=== PATIENT | female | born 1950 | race Caucasian/White ===

== ENCOUNTER → 2017-06-10 | Outpatient (CLI) | payer BC ==
[~2017-06-10] MED LIST: DIPH-437 PO; LEVO25TA PO; MELO15TA3 PO; MULT-506 PO; OXYC-609 PO; TRAM-10 PO; XRL10 PO; [UNRECOGNIZED DRUG - OTHER] PO; [UNRECOGNIZED DRUG - OTHER] PO
--- NOTE | 2017-06-10 09:42 | DIAGNOSTIC IMAGING REPORT ---
L HIP UNILATERAL 2 VIEWS CLINICAL HISTORY: 66 years-old Female presenting with ACUTE PAIN OF LEFT HIP. TECHNIQUE: Frontal and frog-leg lateral views of the left hip were obtained. COMPARISON: Pelvic radiograph from 07/19/2013. FINDINGS: Left hip joint congruent. No advanced degenerative change. No acute fracture or malalignment. Visualized portion of the bony pelvis intact. IMPRESSION: No acute osseous injury of the left hip. Electronically signed by: Rick Card M.D. 06/10/2017 9:41 AM Dictated Date/Time: 06/10/2017 9:40 AM
== END | disposition home or self-care (01) ==
LOC: C.RAD1850 09:30
PROVIDERS: ATTEND Nurse Practitioner Family
DX: M25.552 Pain in left hip (principal); M13.879 Other specified arthritis, unspecified ankle and foot

== ENCOUNTER → 2017-07-01 | Outpatient (CLI) | payer BC | END | disposition home or self-care (01) | LOC: C.MAMM 07:50 | PROVIDERS: ATTEND Nurse Practitioner Family | DX: M85.88 Other specified disorders of bone density and structure, other site (principal) ==

== ENCOUNTER 2019-02-01 10:30 | Inpatient (IN) ==
--- NOTE | 2019-01-02 16:26 | PAT Medication Instructions ---
Medication Instructions Date of Service January 02, 2019 Home Medications levothyroxine 25 mcg PO QAM meloxicam 15 mg PO QAM mirabegron [Myrbetriq] 50 mg PO QAM multivitamin 1 tab PO QAM oxycodone 5 mg PO DAILY PRN tramadol 50 mg PO DAILY PRN ASK your surgeon for instructions meloxicam 15 mg PO QAM DO NOT take the morning of surgery mirabegron [Myrbetriq] 50 mg PO QAM multivitamin 1 tab PO QAM Take morning of surgery With a small sip of water, OTHERWISE NOTHING TO EAT OR DRINK AFTER MIDNIGHT: levothyroxine 25 mcg PO QAM oxycodone 5 mg PO DAILY PRN (okay to take up to 4 hours prior to surgery if needed) tramadol 50 mg PO DAILY PRN (okay to take up to 4 hours prior to surgery if needed) Take evening before surgery oxycodone 5 mg PO DAILY PRN (if needed) tramadol 50 mg PO DAILY PRN (if needed) Other Notes If you have any questions please call us at [phone] or [phone] or [phone] or [phone]
--- NOTE | 2019-01-03 14:16 | Anesthesiology Consultation ---
Date of Service January 03, 2019 Assessment & Plan (1) Encounter for pre-operative examination: - Awaiting review preop testing. - Awaiting surgeon-ordered PCP clearance scheduled 01/13 ([facility] Pined[facility]). Chart Review Chart Review: Patient seen in Pre Admission Testing Teaching & Discussion Pre-Anesthesia Teaching/Discussion Notes: Instructed NPO after midnight before surgery,except medications with 15 cc of water. Medication instructions prov ided according to the PAT guidelines. History Surgery Operation Date: 02/01/19 08:30 Proposed Procedures p Left Total Hip Arthroplasty - Fritz Torres MD Height/Weight Height: 5 ft 3 in Weight: 97.6 kg Allergies Allergy/AdvReac Type Severity Reaction Status Date / Time corn AdvReac Mild STOMACH Verified 01/03/19 14:21 ACHE pollen extracts AdvReac Mild EYES WATER Verified 01/03/19 14:16 gluten AdvReac Unknown GI UPSET Verified 07/18/13 12:29 milk AdvReac Unknown DIARRHEA Verified 07/18/13 12:29 peanut AdvReac Unknown BLOATING Verified 07/18/13 12:29 soy AdvReac Unknown BLOATING Verified 07/18/13 12:29 Sulfa (Sulfonamide AdvReac Unknown NAUSEA Verified 01/03/19 14:16 Antibiotics) wheat AdvReac Unknown BLOATING Verified 07/18/13 12:29 Medications Home Medications Medication Instructions Recorded Confirmed Last Taken levothyroxine 25 mcg PO QAM 01/02/19 01/02/19 Unknown meloxicam 15 mg PO QAM 01/02/19 01/02/19 Unknown mirabegron [Myrbetriq] 50 mg PO QAM 01/02/19 01/02/19 Unknown multivitamin 1 tab PO QAM 01/02/19 01/02/19 Unknown oxycodone 5 mg PO DAILY PRN 01/02/19 01/02/19 Unknown tramadol 50 mg PO DAILY PRN 01/02/19 01/02/19 Unknown Past Medical History Medical History 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 GERD (gastroesophageal reflux disease) CONTROLLED HX: breast cancer S/P LEFT BREAST MASTECTOMY, CHEMO/XRT (10 YEARS AGO) Hypothyroidism Macular degeneration of left eye Obesity Osteoarthritis Pulmonary embolism MULTIPLE PE S/P BREAST SURGERY (10+ YEARS AGO)- ON AC X MONTHS Sleep apnea NO DEVICE (CPAP) D/T CLAUSTROPHOBIA Urinary incontinence Exercise / Class Metabolic Activity II 4-5 Yardwork/Stairs/Walk up hill (uses cane PRN) Past Family History Family History Brother Family history of diabetes mellitus Grandmother (Maternal) Family history of diabetes mellitus Past Surgical History Surgical History History of colonoscopy History of knee replacement procedure of left knee History of knee replacement procedure of right knee History of reconstruction of left breast History of right hip replacement Hx of left mastectomy Hx of oral surgery RECONSTRUCTIVE JAW FOR TMJ- GOOD ROM PER PATIENT Past Anesthesia History No Hx of Anesthesia Complications and No Family Hx of Anesthesia Complications History of PONV No Hx of PONV and No Hx of Motion Sickness Social History Smoking Status: Never smoker Do You Dip or Chew Tobacco: No Hx Alcohol Use: Yes Alcohol type: wine alcohol intake frequency: a few times a month Hx Substance Use: No Review of Systems Patient denies chest pain, shortness of breath, dyspnea on exertion, joint pain, reflux, cough, wheezing, palpitations. Physical Exam Vital Signs VITALS BP 124/81 P 92 TEMP 98.2 SP02 96%RA RESP 16 PHYSICAL Full neck and c-spine range of motion. Full TMJ range of motion. TMD 2.5 finger breaths Mallampati Score 3 Dentition: missing molars, several crowns "all over" Lungs: clear throughout to auscultation Cardiac: regular rate and rhythm, no murmurs noted Spine: normal Carotid arteries: negative bruit Extremities: no edema Testing Laboratory Results 01/03/19 14:33 01/03/19 14:33 PT 10.3 Seconds (9.0-12.0) 01/03/19 14:33 INR 1.0 (0.9-1.1) 01/03/19 14:33 APTT 24.9 Seconds (21.0-31.0) 01/03/19 14:33 Hemoglobin A1c 5.6 % (4.5-5.6) 01/03/19 14:33 Urine Color Yellow 01/03/19 14:33 Urine Appearance Cloudy (Clear) A 01/03/19 14:33 Urine pH 5.0 (4.5-7.5) 01/03/19 14:33 Ur Specific Reedy 1.030 (1.000-1.030) 01/03/19 14:33 Urine Protein Negative (Negative) 01/03/19 14:33 Urine Glucose (UA) Negative (Negative) 01/03/19 14:33 Urine Ketones Trace (Negative) H 01/03/19 14:33 Urine Nitrite Negative (Negative) 01/03/19 14:33 Ur Leukocyte Esterase Negative (Negative) 01/03/19 14:33 Urine WBC (Auto) 1-5 /hpf (0-5) 01/03/19 14:33 Urine RBC (Auto) 0-4 /hpf (0-4) 01/03/19 14:33 U Hyaline Cast (Auto) 1-5 /lpf (0-5) 01/03/19 14:33 U Epithel Cells (Auto) >30 /lpf (0-5) H 01/03/19 14:33 Urine Bacteria (Auto) Negative (Negative) 01/03/19 14:33 Blood Type B Negative 01/03/19 14:33 Antibody Screen NEGATIVE 01/03/19 14:33 Electrocardiogram Date: 01/03/19 Findings: + NSR @ (98) Chest X-Ray Date: 01/03/19 Findings: + NAD (chronic interstitial changes)
[2019-01-03 15:31] LABS: Basophils # (auto) 0.03 K/uL (0-0.2); Basophils % (auto) 0.5 %; Eosinophils % (auto) 1.6 %; Hematocrit (blood only) 44.8 % (37-47); Immature Granulocytes # (auto) 0.01 K/uL (0.00-0.02); Immature Granulocytes % (auto) 0.2 %; Lymphocytes # (auto) 1.56 K/uL (1.2-3.4); Lymphocytes % (auto) 24.5 %; Mean Corpuscular Hemoglobin 29.6 pg (25-34); Mean Corpuscular Hgb Conc 33.5 g/dL (32-36); Mean Corpuscular Volume 88.5 fL (80-100); Mean Platelet Volume 9.3 fL (7.4-10.4); Monocytes # (auto) 0.29 K/uL (0.11-0.59); Monocytes % (auto) 4.6 %; Neutrophils # (auto) 4.38 K/uL (1.4-6.5); Neutrophils % (auto) 68.6 %; Platelet Count 214 K/uL (130-400); RDW Coefficient of Variation 13.6 % (11.5-14.5); RDW Standard Deviation 43.9 fL (36.4-46.3); Red Blood Count 5.06 M/uL (4.2-5.4); White Blood Count 6.37 K/uL (4.8-10.8)
[2019-01-03 15:37] LABS: Appearance Urine Cloudy (Clear); Bacteria Urine Automated Negative (Negative); Bilirubin Urine Negative (Negative); Blood Urine Negative (Negative); Color Urine Yellow; Epithelial Cell Urine Auto >30 /lpf (0-5); Glucose Urine UA Negative (Negative); Ketones Urine Trace (Negative); Leukocyte Esterase Urine Negative (Negative); Nitrite Urine Negative (Negative); Protein Urine Negative (Negative); RBC Urine Automated 0-4 /hpf (0-4); Urobilinogen Urine Negative (Negative)
[2019-01-03 15:38] LABS: Albumin Level 3.5 gm/dl (3.4-5.0); BUN Creatinine Ratio 26.5 (10-20); Calcium 9.1 mg/dl (8.5-10.1); Est GFR (African American) 95.6; Est GFR (Non-African American) 82.5
[2019-01-03 15:45] LABS: Partial Thromboplastin Ratio 0.9; Partial Thromboplastin Time 24.9 Seconds (21.0-31.0); Prothrombin Time 10.3 Seconds (9.0-12.0)
[2019-01-03 16:06] LABS: Calcium Oxalate Crystals Urine Present (None Prsent); Mucus Urine Present (None Prsent)
--- NOTE | 2019-01-03 16:19 | XRay Report ---
XR chest Pre-admission PA/Lat CLINICAL HISTORY: pat preoperative evaluation COMPARISON STUDY: 06/23/2013 FINDINGS: Mild chronic interstitial change. No focal infiltrate. Stable tortuosity of the thoracic aorta. Diaphragms are smooth. IMPRESSION: Chronic change. No acute process. The above report was generated using voice recognition software. It may contain grammatical, syntax or spelling errors. Electronically signed by: Graeme Bey M.D. 01/03/2019 4:18 PM
[2019-01-04 05:48] LABS: Estimated Average Glucose 114 mg/dl; Hemoglobin A1C 5.6 % (4.5-5.6)
--- NOTE | 2019-01-31 20:43 | History and Physical Report ---
DATE OF ADMISSION: 02/01/2019 CHIEF COMPLAINT: Chronic left hip pain. HISTORY OF PRESENT ILLNESS: This is a 68-year-old female patient of Dr. Membreno, complaining of chronic left hip pain, longstanding, now progressively getting worse. The patient has failed conservative treatment including anti-inflammatories, tramadol, home exercise program and the use of a cane and is currently disabled to a walker. The patient has increased pain with weightbearing activities and her pain does interfere with her activities of daily living. The patient has been diagnosed with end-stage osteoarthritis per clinical and radiographic exams in the left hip. The patient wished to proceed with a left total hip arthroplasty. PAST MEDICAL HISTORY: She has a history of pulmonary embolism, sleep apnea, hypothyroidism, osteoarthritis, spine problems, sciatica, obesity, breast cancer. SOCIAL HISTORY: Nonsmoker. Occasional drinker. PAST SURGICAL HISTORY: Right hip replacement, both knee replacement, mastectomy, breast reconstruction and TMJ surgery. FAMILY HISTORY: Noncontributory. REVIEW OF SYSTEMS: Chronic left hip pain. Otherwise, denies any shortness of breath, chest pain, nausea, vomiting or any other joint complaints. MEDICATIONS: 1. Levothyroxine 25 mcg daily. 2. Tylenol 325 mg as needed. 3. Myrbetriq 50 mg daily. 4. Meloxicam 15 mg daily. ALLERGIES: SULFA ANTIBIOTICS, ALSO CORN, GLUTEN, PEANUT, POLLEN AND SOY. PHYSICAL EXAMINATION: GENERAL: Well-developed, well-nourished 68-year-old female in no acute distress. She is alert and oriented x3 and pleasant. HEENT: Normocephalic, atraumatic. Extraocular motions are intact. Pupils are equal and reactive to light. HEART: Regular rate and rhythm, no murmurs. LUNGS: Clear. ABDOMEN: Soft, nontender, bowel sounds present. EXTREMITIES: Left hip reveals passive painful range of motion in internal and external rotation. She has no flexion contracture. She has 5/5 strength with pain. NEUROLOGIC: Neurovascularly, she is intact in her left lower extremity. DIAGNOSES: Left hip end-stage osteoarthritis, history of pulmonary embolisms, sleep apnea, hypothyroidism, osteoarthritis, spine problems, sciatica, obesity, breast cancer. PLAN: The patient was advised of her diagnosis. Indications, risks, benefits, postop course have all been reviewed. The patient wished to proceed with a left total hip arthroplasty. Necessary consent forms, preoperative testing and clearances will be obtained.
[~2019-02-01 10:30] MED LIST changes: +ACETAMINOPHEN 500 MG TAB PO SCH; +BUPIVACAINE 0.5 % 5 MG/1 ML PF 10ML VIAL ONE; +CEFAZOLIN 2000MG 2,000 MG/15 ML SYR IV SCH; -DIPH-437 PO; +FAMOTIDINE 20 MG TAB PO SCH; +GABAPENTIN 300 MG CAP PO SCH; -LEVO25TA PO; +LIDOCAINE HCL 2% 2 ML VIAL/AMP(20MG/ML) INFIL ONE; +LR 15ML/HR IV SCH; -MELO15TA3 PO; +METOCLOPRAMIDE HCL 10 MG TABLET PO SCH; +MIDAZOLAM HCL 1 MG/ML 2ML VIAL ONE; -MULT-506 PO; -OXYC-609 PO; +PROPOFOL IV EMULSION 10 MG/ML 20 ML VIAL IV ONE; +ROPIVACAINE 0.5% HCL/PF 150 MG, BUPIVACAINE 0.5% MPF 30 ML, EPINEPHrine 30MG/30ML (OR U... INFIL SCH; -TRAM-10 PO; -XRL10 PO; -[UNRECOGNIZED DRUG - OTHER] PO; -[UNRECOGNIZED DRUG - OTHER] PO; +dexAMETHasone 4 MG TAB PO SCH
[2019-02-01] MEDS ORDERED: ORTHO JOINT ANESTHETIC ONE (10:59)
[2019-02-01] MEDS ORDERED: BACITRACIN INJ 50,000 UNIT VIAL ONE (10:59)
[2019-02-01] MEDS ORDERED: ATROPINE SULFATE 0.1 MG/ML 10ML SYR IV PRN (11:17)
[2019-02-01] MEDS ORDERED: ePHEDrine sulfate 50 MG/ML AMP IV PRN (11:17)
[2019-02-01] MEDS ORDERED: ONDANSETRON INJ 2 MG/ML 2 ML VIAL IV PRN ×2 (11:17→17:14)
--- NOTE | 2019-02-01 12:33 | History & Physical Bridge Note ---
Date of Service February 01, 2019 History & Physical Bridge Note I have examined the patient, reviewed the History & Physical and in the interval since the performance of the History & Physical I have noted the following changes of clinical significance: no changes noted
[2019-02-01] MEDS ORDERED: fentaNYL citrate 100 MCG/2 ML VIAL ONE ×2 (12:59→16:24)
[2019-02-01] MEDS ORDERED: ONDANSETRON INJ 2 MG/ML 2 ML VIAL ONE (13:16)
[2019-02-01] MEDS ORDERED: PROPOFOL IV EMULSION 10 MG/ML 20 ML VIAL IV ONE (14:28)
[2019-02-01] MEDS ORDERED: LABETALOL HCL IV 5 MG/ML 20ML IV ONE (14:56)
--- NOTE | 2019-02-01 16:10 | Post Operative Brief Note ---
Immediate Post Op Note v1 Date of Surgery February 01, 2019 Pre & Post Diagnosis Operation Date: 02/01/19 12:50 Pre-Op Diagnosis: Left Hip Unilateral Primary Osteoarthritis, obesity BMI 38.3 Post-Op Diagnosis: Left Hip Unilateral Primary Osteoarthritis; Increased difficulty due to obesity; BMI 38.3 I personally identified the patient: Yes Procedure Operation Date: 02/01/19 12:50 Actual Procedures p Left Total Hip Arthroplasty, Uncemented(Left), increased difficulty BMI 38.3, application superficial wound VAC- Fritz Torres MD Surgeon Fritz Torres MD Asphalt Mixing Machine Operator Graeme FELICIANO Estimated Blood Loss 400 Findings Consistent with Post-Op Diagnosis Specimens Femoral head Drains Hemovac Drain Anesthesia Type MAC Spinal Regional Complications none Disposition Accompanied Patient To Recovery: No Disposition: Recovery Room Overlapping Procedure I was immediately available: during the entire case.
[2019-02-01] MEDS: fentaNYL citrate 100 MCG/2 ML VIAL IV PRN ×2 (16:25→16:35)
--- NOTE | 2019-02-01 16:31 | Anesthesiology Progress Note ---
Date of Service February 01, 2019 Anesthesia Post Procedure Vital Signs Vital Signs: Temp Pulse Resp BP Pulse Ox 02/01/19 11:08 36.8 C 98 H 20 151/90 H 96 Pain Intensity Left Hip: Pain Intensity: 2 Transfer of Care Handoff Completed per policy Notes Mental Status: alert / awake / arousable Patient Amnestic to Procedure: Yes Nausea / Vomiting: adequately controlled Pain: adequately controlled Airway Patency, RR, SpO2: stable & adequate BP & HR: stable & adequate Hydration State: stable & adequate Neuraxial Anesthesia: was administered and sensory block is resolving Anesthetic Complications: no major complications apparent and Pt Satisfied with anesthetic care Notes: The patient is awake and comfortable. Her vital signs are all stable in the PACU.
--- NOTE | 2019-02-01 16:45 | XRay Report ---
AP PELVIS, CROSSTABLE LATERAL LEFT HIP History: Left total hip arthroplasty. Degenerative arthritis. Postop. FINDINGS: The patient is status post a left total hip arthroplasty. The hardware is intact. No fractu re or dislocation. Skin mar and surgical drains are in place. Evidence for prior right total hip arthroplasty. IMPRESSION: Left total hip arthroplasty. No evidence for hardware complication. Electronically signed by: William Botello M.D. 02/01/2019 4:44 PM
[2019-02-01] MEDS ORDERED: MAGNESIUM HYDROXIDE SUSP 30 ML UDC PO PRN (17:14)
[2019-02-01] MEDS ORDERED: HYDROmorphone INJ 0.5 MG/0.5 ML SYR IV PRN (17:14)
[2019-02-01] MEDS ORDERED: OXYCODONE HCL IR 5 MG TAB (IMMEDIATE RELEASE) PO PRN (17:14)
[2019-02-01] MEDS ORDERED: NALOXONE HCL 0.4 MG/1 ML VIAL/CARP IV PRN (17:14)
[2019-02-01] MEDS ORDERED: SODIUM CHLORIDE 0.9% 1000ML 1,000 ML IV SCH (17:14)
[2019-02-01] MEDS ORDERED: bisacodyL 10 MG SUPP PR PRN (17:14)
--- NOTE | 2019-02-01 17:41 | Operative Report ---
Post Operative Report Pre & Post Diagnosis Operation Date: 02/01/19 12:50 Pre-Op Diagnosis: Left Hip Unilateral Primary Osteoarthritis, obesity BMI 38.3 Post-Op Diagnosis: Left Hip Unilateral Primary Osteoarthritis; Increased difficulty due to obesity; BMI 38.3 I personally identified the patient: Yes Procedure Operation Date: 02/01/19 12:50 Actual Procedures p Left Total Hip Arthroplasty, Uncemented(Left), application superficial wound VAC, increased difficulty BMI 38.3- Fritz Torres MD Surgeon Fritz Torres MD Dog Catcher Graeme FELICIANO Estimated Blood Loss 400 Findings Consistent with Post-Op Diagnosis Specimens Femoral head Drains 2 Hemovac Anesthesia Type MAC Spinal Regional Complications none Disposition Accompanied Patient To Recovery: No Disposition: Recovery Room Indications 68-year-old female with advanced osteoarthritis left hip. She failed all conservative management. She had previous right hip replacement with good success. She also had bilateral knee replacements. Patient wants to proceed with left hip replacement. Patient does have obesity localized to the hip area with a significant obesity which will add to the increased difficulty the procedure. Description of Procedure Patient taken to the operating room and anesthetized under spinal anesthesia and sedation. Patient was placed supine on the operating table. Exam of the involved extremity demonstrated significant obesity around the thigh and hip area. Patient had limited flexion and internal rotation with flexion to about 90 degrees.The patient was placed on a sacral pad and the involved leg was placed on a foot bump to flex knee 90 and hip 60. A Geurra-type approach was performed to the hip. A longitudinal lateral incision was made over the hip. The skin was incised sharply. A large and typical incision was made due to the obesity. The deep layer of fat was divided down to the fascia. Multiple subcutaneous bleeders were cauterized. Layer of fat was at least 10 inches deep. The trochanteric bursa was resected. There was more than typical fat overlying the gluteus medius tendon and muscle. Some of fat was resected. A split was made in the gluteus medius muscle between the anterior 40% and posterior 60%. The minimus was divided longitudinally reflected off the underlying capsule. The capsule was incised down to the hip joint. An incision was made through the gluteus medius leaving a cuff of tendon for repair on the greater trochanter. The vastus lateralis was split longitudinally for about 3 cm. A muscular capsular flap was elevated off the hip. The hip was dislocated with use of bone hook and with flexion and external rotation of the hip. The femoral neck cut was made approximately 15 mm proximal to the lesser trochanter in neutral anteversion. Head and neck fragment were removed. The femoral head demonstrated large femoral neck osteophytes and osteoarthritis of the articular surface of the femoral head.. A self-retaining superior tractor was impacted into the ilium, a blunt Maggie retractor was placed anteriorly a double angled inferior retractor was placed on the ischium. The acetabulum demonstrated no deformity articular wear. The acetabular labrum was resected all osteophytes were resected.The soft tissue in the acetabular fossa was resected. An anterior capsular release was performed. Some the capsule was resected for exposure. The first reamer size 44 was used to medialize reaming to the inner table and then sequential reamers for the acetabulum were used in 2 mm increments up to a size 48. I used the [employer] total hip arthroplasty system using a PSL type cup. Trial reduction demonstrated a 48 millimeter cup was the appropriate size and fit. The placement of the final implant was performed after irrigating the acetabulum with antibiotic solution with pulsatile lavage. The position of the cup was approximately 15 anteversion 45 abduction. Good fixation was performed. Two 6.5 mm cancellus screws were placed in the posterior superior quadrant for further fixation through the cup. The acetabular liner was impact ed into position. The 36 mm D 0 degree X3 polyethylene acetabular liner was used.The Orthomix coctail injected into the capsule around the acetabular component and deeper muscles. The retractors removed and attention was taken to the femur. The femur was exposed with flexion external rotation. A Canal reamer was used followed by sequential tapered Accolade 2 broaches up to a size 4. This had a good fit and fill. Trial reduction was performed with a 127 neck angle based on preoperative templating. A -5 neck length gave equal leg lengths and stable range of motion through full flexion flexion adduction and internal rotation and extension and external rotation. The trials removed and after irrigation again and the final implant was impacted which was the Accolade 2 size four 127 degree neck angle. The Biolox ceramic head size 36-5 neck length was used. After final implants replaced the reduction was noted to be stable. Betadine soak was used per protocol. 2 drains were placed deep. These were brought out laterally and connected to Hemovac. The minimus was closed with interrupted [id number] #1 Vicryl sutures as well as a #5 FiberWire Jose- Saurabh suture through bone of the greater trochanter. The medius was closed with transosseous #5 FiberWire sutures using Jose Saurabh suture technique. Lateral row soft tissue repair was performed with figure of 8 #2 FiberWire sutures. The medius split was closed with interrupted [id number] #1 Vicryl sutures. The vastus lateralis was closed with interrupted figure of eight #1Vicryl sutures. The fascia reymundo was closed with interrupted figure of eight #1 Vicryl sutures. The fat was closed with large needle #2 Vicryl sutures to close the space and then 2-0 Vicryl multiple sutures to close the fat more superficially. Skin was closed with mar and a superficial wound VAC was applied. The patient tolerated procedure well. Graeme Donnelly my physician architectural administrative assistant assisted me in the procedure with patient positioning And draping soft tissue retraction instrument management suture management and assisted in the outer layer closure and will participate in the postoperative care the patient. There was significant increased difficulty and increased time of the procedure extending the procedure by at least 45 minutes due to the size of the patient due to her obesity. I attest to the content of the Intraoperative Record and any orders documented therein. Any exceptions are noted below.
[2019-02-01] MEDS: ACETAMINOPHEN 500 MG TAB PO SCH (20:13)
[2019-02-01] MEDS: ASPIRIN 81 MG ECTAB PO SCH (20:13)
[2019-02-01] MEDS: CEFAZOLIN 2000MG 2,000 MG/15 ML SYR IV SCH (20:13)
[2019-02-01] MEDS: SENNA 8.6 MG TAB PO SCH (20:13)
[2019-02-01] MEDS: DOCUSATE SODIUM 100 MG CAP PO SCH (20:13)
--- NOTE | 2019-02-02 00:10 | Hospitalist Consultation ---
Date of Consultation February 02, 2019 Assessment & Plan (1) Hypothyroidism: Continue levothyroxine as ordered (2) GERD (gastroesophageal reflux disease): She does not appear to take anything on a daily basis. I will order Pepcid BID while in house as she is on aspirin BID. (3) S/P total hip arthroplasty: Left Thank you for this consultation. [facility] Hospitalists will follow with you. (4) Hx pulmonary embolism: This was associated with active breast cancer. DVT prophylaxis per ortho SCDs already ordered. (5) Sleep apnea: Patient does not use CPAP as she feels claustrophobic with mask. History of Present Illness Reason for Consultation: Medical management. Attending Physician: Fritz Torres MD History of Present Illness 68 y/o female underwent L total hip arthroplasty on 02/01/19. I saw her in her room. She is feeling well. She reports good pain control. No chest pain, SOB, cough, F/C, N/V. Her home medications are already ordered. There are no new complaints. Allergies Allergy/AdvReac Type Severity Reaction Status Date / Time corn AdvReac Mild STOMACH Verified 02/01/19 11:10 ACHE pollen extracts AdvReac Mild EYES WATER Verified 02/01/19 11:10 gluten AdvReac Unknown GI UPSET Verified 02/01/19 11:10 milk AdvReac Unknown DIARRHEA Verified 02/01/19 11:10 peanut AdvReac Unknown BLOATING Verified 02/01/19 11:10 soy AdvReac Unknown BLOATING Verified 02/01/19 11:10 Sulfa (Sulfonamide AdvReac Unknown NAUSEA Verified 02/01/19 11:10 Antibiotics) wheat AdvReac Unknown BLOATING Verified 02/01/19 11:10 Home Medications Home Medications Medication Instructions Recorded Confirmed Type levothyroxine 25 mcg PO QAM 01/02/19 02/01/19 History meloxicam 15 mg PO QAM 01/02/19 02/01/19 History mirabegron [Myrbetriq] 50 mg PO QAM 01/02/19 02/01/19 History multivitamin 1 tab PO QAM 01/02/19 02/01/19 History oxycodone 5 mg PO DAILY PRN 01/02/19 02/01/19 History tramadol 50 mg PO DAILY PRN 01/02/19 02/01/19 History cranberry 500 mg PO DAILY 02/01/19 02/01/19 History magnesium 250 mg PO DAILY 02/01/19 02/01/19 History naproxen sodium [Aleve] 220 mg PO BID PRN 02/01/19 02/01/19 History Patient History Medical History 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 GERD (gastroesophageal reflux disease) CONTROLLED HX: breast cancer S/P LEFT BREAST MASTECTOMY, CHEMO/XRT (10 YEARS AGO) Hypothyroidism Macular degeneration of left eye Osteoarthritis Pulmonary embolism MULTIPLE PE S/P BREAST SURGERY (10+ YEARS AGO)- ON AC X MONTHS Sleep apnea NO DEVICE (CPAP) D/T CLAUSTROPHOBIA Urinary incontinence Obesity Surgical History History of colonoscopy History of knee replacement procedure of left knee History of knee replacement procedure of right knee History of reconstruction of left breast History of right hip replacement Hx of left mastectomy Hx of oral surgery RECONSTRUCTIVE JAW FOR TMJ- GOOD ROM PER PATIENT Family History Brother Family history of diabetes mellitus Grandmother (Maternal) Family history of diabetes mellitus Social History Preferred Language: Algerian Communication Ability: Effective Beliefs That Will Affect Care: None Current Living Situation: Spouse Feels Safe at Home: Yes Safety Concerns: Feels Safe At This Time Smoking Status: Never smoker Do You Dip or Chew Tobacco: No ; Second Hand Exposure: No ; Hx Alcohol Use: Yes Alcohol type: wine Hx Substance Use: No Review of Systems Review of Systems: NEEDS EDITING Constitutional- no fever; no weight loss Eyes- no acute visual changes ENT- no sinus drainage; no pharyngitis Pulmonary- no cough, no wheezing, no shortness of breath Cardiac- no chest pain, no palpitations, no orthopnea, no dependent edema GI- no nausea, no vomiting, no diarrhea, no melena, no hematochezia - no dysuria, no hematuria Musculoskeletal- no myalgias Derm- no rashes, no new skin lesions, no changing skin lesions Hematologic- no unusual bruising, no unusual bleeding Lymphatics- no adenopathy Endocrine- no polyuria or polydipsia; no heat or cold intolerance Neuro- no headaches, no focal neurologic symptoms Psych- no anxiety, no depression Physical Exam Physical Exam: NEEDS EDITING General- adult female, NAD Head- atraumatic Eyes- PERRL, EOMI, anicteric ENT- oropharynx clear Neck- supple, no JVD, no adenopathy, no thyromegaly. Lungs- clear to auscultation, no rales, rhonchi, or wheezes. Heart- regular rhythm; no murmur, no gallop, no rub appreciated Abdomen- normal bowel sounds, soft, nontender. Extremities- no pretibial edema, no calf tenderness; peripheral pulses intact Neuro- alert, oriented x 3; PERRL, EOMI; supervisor cloth winding II-XII grossly intact, non-focal. Skin- warm & dry Results & Data Vital Signs (Past 12 Hours) Vital Signs Temp Pulse Pulse Resp BP Pulse Ox 02/01/19 23:15 36.4 C L 85 16 110/70 99 02/01/19 20:07 36.4 C L 92 H 15 120/79 97 02/01/19 19:06 36.4 C L 92 H 17 121/76 98 02/01/19 18:07 36.4 C L 86 17 121/84 97 02/01/19 17:37 36.4 C L 85 17 128/82 97 02/01/19 17:05 36.7 C 88 15 125/82 94 02/01/19 16:50 36.4 C L 84 12 133/85 96 02/01/19 16:40 89 13 127/81 93 02/01/19 16:30 89 19 109/83 94 02/01/19 16:20 86 25 H 128/73 100 02/01/19 16:12 36.8 C 88 16 137/82 100 PG Care Time/CCT Total # of Minutes Spent Total Time Spent with Patient: Total time spent is greater than 50% in coordination of care (as documented) at patient's floor/unit and/or counseling patient:
[2019-02-02] MEDS: ACETAMINOPHEN 500 MG TAB PO SCH ×2 (05:12→14:48)
[2019-02-02] MEDS: CEFAZOLIN 2000MG 2,000 MG/15 ML SYR IV SCH (05:12)
[2019-02-02] MEDS: LEVOTHYROXINE SODIUM 25 MCG TABLET PO SCH (05:13)
[2019-02-02 06:46] LABS: Basophils # (auto) 0.01 K/uL (0-0.2); Basophils % (auto) 0.1 %; Hematocrit (blood only) 34.5 % (37-47); Hemoglobin 11.6 g/dL (12.0-16.0); Immature Granulocytes # (auto) 0.03 K/uL (0.00-0.02); Immature Granulocytes % (auto) 0.3 %; Lymphocytes # (auto) 0.93 K/uL (1.2-3.4); Lymphocytes % (auto) 9.8 %; Mean Corpuscular Hemoglobin 28.8 pg (25-34); Mean Corpuscular Hgb Conc 33.6 g/dL (32-36); Mean Corpuscular Volume 85.6 fL (80-100); Mean Platelet Volume 8.9 fL (7.4-10.4); Monocytes # (auto) 0.86 K/uL (0.11-0.59); Monocytes % (auto) 9.1 %; Neutrophils # (auto) 7.64 K/uL (1.4-6.5); Neutrophils % (auto) 80.7 %; Platelet Count 220 K/uL (130-400); RDW Standard Deviation 40.8 fL (36.4-46.3); Red Blood Count 4.03 M/uL (4.2-5.4); White Blood Count 9.47 K/uL (4.8-10.8)
[2019-02-02 07:18] LABS: BUN Creatinine Ratio 18.6 (10-20); Calcium 8.4 mg/dl (8.5-10.1); Creatinine Clr Calc Pharmacy 77.1 ml/min; Est GFR (African American) 89.8; Est GFR (Non-African American) 77.5; Potassium 4.1 mmol/L (3.5-5.1)
--- NOTE | 2019-02-02 08:26 | Anesthesiology Progress Note ---
Date of Service February 02, 2019 Anesthesia Post Procedure Vital Signs Vital Signs: Temp Pulse Pulse Resp BP Pulse Ox 02/02/19 07:30 36.5 C 82 16 116/73 100 02/02/19 03:27 36.6 C 88 16 117/74 99 02/01/19 23:15 36.4 C L 85 16 110/70 99 02/01/19 20:07 36.4 C L 92 H 15 120/79 97 02/01/19 19:06 36.4 C L 92 H 17 121/76 98 02/01/19 18:07 36.4 C L 86 17 121/84 97 02/01/19 17:37 36.4 C L 85 17 128/82 97 02/01/19 17:05 36.7 C 88 15 125/82 94 02/01/19 16:50 36.4 C L 84 12 133/85 96 02/01/19 16:40 89 13 127/81 93 02/01/19 16:30 89 19 109/83 94 02/01/19 16:20 86 25 H 128/73 100 02/01/19 16:12 36.8 C 88 16 137/82 100 02/01/19 11:08 36.8 C 98 H 20 151/90 H 96 Pain Intensity Left Hip: Pain Intensity: 10 Lower Back: Pain Intensity: 4 Notes Mental Status: alert / awake / arousable and participated in evaluation Patient Amnestic to Procedure: Yes Nausea / Vomiting: adequately controlled Pain: improving with treatment (recent PT) Airway Patency, RR, SpO2: stable & adequate BP & HR: stable & adequate Hydration State: stable & adequate Neuraxial Anesthesia: was administered and sensory block resolved Anesthetic Complications: no major complications apparent
[2019-02-02] MEDS: DOCUSATE SODIUM 100 MG CAP PO SCH ×2 (08:37→20:49)
[2019-02-02] MEDS: MULTIVITAMIN TAB PO SCH (08:37)
[2019-02-02] MEDS: MAGNESIUM OXIDE 400 MG TAB PO SCH (08:38)
[2019-02-02] MEDS: MIRABEGRON ER 25 MG TAB PO SCH (08:38)
[2019-02-02] MEDS: FAMOTIDINE 20 MG TAB PO SCH ×2 (08:38→20:49)
[2019-02-02] MEDS: ASPIRIN 81 MG ECTAB PO SCH ×2 (08:38→20:49)
[2019-02-02] MEDS ORDERED: MULTIVITAMIN TAB PO SCH (09:00)
[2019-02-02] MEDS ORDERED: NON-FORMULARY MEDICATION (Cranberry 500 MG) PO SCH (09:00)
--- NOTE | 2019-02-02 10:25 | Orthopedic Progress Note ---
Date of Service February 02, 2019 Assessment & Plan (1) S/P total hip arthroplasty: POD #1, Left TAMIKO PT/ OT DVT proph ASA D/C planning- Home W OPPT. As per medicine. Subjective POD #1, Doing well. Denies SOB, CP, N/V. Pain controlled well/ Wishes OPPT Physical Exam Physical Exam: Left hip prevena and drain in tact, no draiange. Toes/ ankle mobile. No calf tenderness. N/V+. A&Ox3. Results & Data Vital Signs (Past 12 Hours) Vital Signs Temp Pulse Resp BP Pulse Ox 02/02/19 07:30 36.5 C 82 16 116/73 100 02/02/19 03:27 36.6 C 88 16 117/74 99 02/01/19 23:15 36.4 C L 85 16 110/70 99
--- NOTE | 2019-02-02 11:25 | Hospitalist Progress Note ---
Date of Service February 02, 2019 Assessment & Plan (1) S/P total hip arthroplasty: Left , doing very well post-op -continue pain control DVT proph with ASA 81 bid and SCDs bowel regimen PT/OT evals, plan for home with OPPT (2) Hypothyroidism: Continue levothyroxine as ordered, TSH normal as outpt recently (3) GERD (gastroesophageal reflux disease): She does not appear to take anything on a daily basis. -continue Pepcid BID while in house as she is on aspirin BID. (4) Hx pulmonary embolism: This was associated with active breast cancer. DVT prophylaxis per ortho with ASA and SCDs No evidence of DVT/PE at this time (5) Sleep apnea: Patient does not use CPAP as she feels claustrophobic with mask. Dispo-Stable from medical standpoint, labs reviewed, doing very well Hospitalist service will sign off at this time, please feel free to reconsult or call if acute issues arise. Subjective DOing very well. Denies chest pain or SOB, Has some pain in left hip with ambulation. Denies nausea or abd pain. Last BM yesterday prior to surgery. Is tolerating po. No headache. Review of Systems Review of Systems: All systems reviewed & are unremarkable except as noted in HPI & below Physical Exam Constitutional: WD/WN, vitals as above Eyes: + anicteric sclerae ENMT: external ear and nose normal, oropharynx normal Neck: trachea midline, no thyromegaly Respiratory: normal respiratory effort, lungs clear to auscultation Cardiovascular: RRR, no murmur, no edema Extremities: no calf tenderness and no edema Gastrointestinal (Abdomen): normal bowel sounds, soft, nontender, no hepatosplenomegaly Musculoskeletal: Extremities: + extremities abnormal to inspection (left hip with hemovac drain in place, dressing over lateral hip), no cyanosis and no clubbing Skin: no rashes, warm and dry Neurologic: moves all extremities and awake; no focal motor deficits Psychiatric: A+Ox3, euthymic affect Results & Data Vital Signs (Past 12 Hours) Vital Signs Temp Pulse Resp BP Pulse Ox 02/02/19 07:30 36.5 C 82 16 116/73 100 02/02/19 03:27 36.6 C 88 16 117/74 99 Laboratory Results 02/02/19 02/02/19 Range/Units 06:23 06:23 WBC 9.47 (4.8-10.8) K/uL RBC 4.03 L (4.2-5.4) M/uL Hgb 11.6 L (12.0-16.0) g/dL Hct 34.5 L (37-47) % MCV 85.6 (80-100) fL MCH 28.8 (25-34) pg MCHC 33.6 (32-36) g/dL RDW Std Deviation 40.8 (36.4-46.3) fL RDW Coeff of [place] 13.0 (11.5-14.5) % Plt Count 220 (130-400) K/uL MPV 8.9 (7.4-10.4) fL Immature Gran % (Auto) 0.3 % Neut % (Auto) 80.7 % Lymph % (Auto) 9.8 % [place] % (Auto) 9.1 % Eos % (Auto) 0.0 % Baso % (Auto) 0.1 % Immature Gran # (Auto) 0.03 H (0.00-0.02) K/uL Neut # (Auto) 7.64 H (1.4-6.5) K/uL Lymph # (Auto) 0.93 L (1.2-3.4) K/uL [place] # (Auto) 0.86 H (0.11-0.59) K/uL Eos # (Auto) 0.00 (0-0.5) K/uL Baso # (Auto) 0.01 (0-0.2) K/uL Sodium 139 (136-145) mmol/L Potassium 4.1 (3.5-5.1) mmol/L Chloride 107 (98-107) mmol/L Carbon Dioxide 26 (21-32) mmol/L Anion Gap 6.0 (3-11) BUN 15 (7-18) mg/dl Creatinine 0.79 (0.6-1.2) mg/dl Est Cr Clr Drug Dosing 77.1 ml/min Est GFR ( Amer) 89.8 Est GFR (Non-Af Amer) 77.5 BUN/Creatinine Ratio 18.6 (10-20) Glucose 116 H (70-99) mg/dl Calcium 8.4 L (8.5-10.1) mg/dl PG Care Time/CCT Total # of Minutes Spent Total Time Spent with Patient: Total time spent is greater than 50% in coordination of care (as documented) at patient's floor/unit and/or counseling patient:
[2019-02-02] MEDS: HYDROCODONE/ACETAMOPHEN 5/325MG TAB PO PRN ×3 (18:25→23:40)
[2019-02-02] MEDS: SENNA 8.6 MG TAB PO SCH (20:49)
[2019-02-03] MEDS: LEVOTHYROXINE SODIUM 25 MCG TABLET PO SCH (05:35)
[2019-02-03] MEDS: HYDROCODONE/ACETAMOPHEN 5/325MG TAB PO PRN ×3 (05:37→11:32)
[2019-02-03 05:57] LABS: Basophils # (auto) 0.02 K/uL (0-0.2); Basophils % (auto) 0.3 %; Eosinophils # (auto) 0.06 K/uL (0-0.5); Eosinophils % (auto) 0.8 %; Hematocrit (blood only) 33.4 % (37-47); Hemoglobin 11.1 g/dL (12.0-16.0); Immature Granulocytes # (auto) 0.03 K/uL (0.00-0.02); Immature Granulocytes % (auto) 0.4 %; Lymphocytes # (auto) 1.22 K/uL (1.2-3.4); Lymphocytes % (auto) 15.7 %; Mean Corpuscular Hemoglobin 29.1 pg (25-34); Mean Corpuscular Hgb Conc 33.2 g/dL (32-36); Mean Corpuscular Volume 87.4 fL (80-100); Mean Platelet Volume 9.2 fL (7.4-10.4); Monocytes # (auto) 0.86 K/uL (0.11-0.59); Monocytes % (auto) 11.1 %; Neutrophils # (auto) 5.58 K/uL (1.4-6.5); Neutrophils % (auto) 71.7 %; Platelet Count 196 K/uL (130-400); RDW Coefficient of Variation 13.4 % (11.5-14.5); RDW Standard Deviation 42.8 fL (36.4-46.3); Red Blood Count 3.82 M/uL (4.2-5.4); White Blood Count 7.77 K/uL (4.8-10.8)
[2019-02-03 06:18] LABS: BUN Creatinine Ratio 17.6 (10-20); Calcium 8.5 mg/dl (8.5-10.1); Creatinine Clr Calc Pharmacy 89.5 ml/min; Est GFR (African American) 104.9; Est GFR (Non-African American) 90.5; Potassium 3.9 mmol/L (3.5-5.1)
--- NOTE | 2019-02-03 08:21 | Orthopedic Progress Note ---
Date of Service February 03, 2019 Assessment & Plan (1) S/P total hip arthroplasty: POD #2, Left TAMIKO PT/ OT DVT proph ASA D/C planning- Home W OPPT. today As per medicine. Prevena management per wound nurse. Subjective POD #2, Doing well. Denies SOB, CP, N/V. Pain controlled well. Wishes OPPT States she was getting dizzy on oxycodone, was changed to norco and doing well. Prevena keeps alarming, suction holding well, will have wound nurse address, having no output. If cannot fix may change to sterile dresising. Physical Exam Physical Exam: Left hip prevena in tact and holding suction well, no noticeable output. Toes/ ankle mobile. No calf tenderness. N/V+. A&Ox3. Results & Data Vital Signs (Past 12 Hours) Vital Signs Temp Pulse Resp BP Pulse Ox 02/03/19 07:26 36.9 C 108 H 18 138/82 95 02/02/19 23:21 37.1 C 98 H 16 116/76 100
[2019-02-03] MEDS ORDERED: ONDANSETRON 8 MG TABLET PO PRN (08:33)
[2019-02-03] MEDS: MIRABEGRON ER 25 MG TAB PO SCH (09:41)
[2019-02-03] MEDS: DOCUSATE SODIUM 100 MG CAP PO SCH (09:42)
[2019-02-03] MEDS: ASPIRIN 81 MG ECTAB PO SCH (09:42)
[2019-02-03] MEDS: MULTIVITAMIN TAB PO SCH (09:42)
[2019-02-03] MEDS: MAGNESIUM OXIDE 400 MG TAB PO SCH (09:42)
[2019-02-03] MEDS: FAMOTIDINE 20 MG TAB PO SCH (09:42)
--- NOTE | 2019-02-13 16:46 | Discharge Summary ---
HISTORY OF PRESENT ILLNESS: This is a 68-year-old female patient of Dr. Torres'gabriela complaining of chronic left hip pain, longstanding, now progressively getting worse. The patient has failed conservative treatment. She was diagnosed with end-stage osteoarthritis per clinical and radiographic exams. The patient elected to proceed with a left total hip arthroplasty. PAST MEDICAL HISTORY: Pulmonary embolism, sleep apnea, hypothyroidism, osteoarthritis, spine problems, sciatica, obesity and breast cancer. POSTOPERATIVE COURSE: The patient underwent a left total hip arthroplasty on 02/01/2019. She was followed closely with medical consultation, DVT prophylaxis in the form of aspirin, physical therapy and pain control. The patient on postoperative day #2 was getting dizzy on the oxycodone. She was switched to Vevay. The problem was resolved on discharge, vital signs were all stable. She was also having issues with her Prevena wound nurse was to check on that and it was an issue that it could not be resolved, it could be replaced with sterile dressings. Otherwise, uneventful postoperative course. PHYSICAL EXAMINATION: On discharge, left hip Prevena wound VAC was clean, dry and intact. There was no redness or drainage. She had no calf tenderness. Negative Homans sign. Toes and ankle were mobile. Neurologically and neurovascularly she is intact in her left lower extremity. DIAGNOSES: Left hip total hip arthroplasty with application of Prevena wound VAC, pulmonary embolism, sleep apnea, hypothyroidism, osteoarthritis, spine problems, sciatica, obesity and breast cancer. PLAN: The patient was discharged home with outpatient physical therapy. She will continue aspirin twice daily for DVT prophylaxis. She will continue her preadmission medications with the addition of pain medications. The patient will follow up as an outpatient as scheduled.
== END 2019-02-03 12:33 | disposition home or self-care (01) | DRG 470 ==
LOC: ASU 10:30 → 3E 16:15
DX: Z86.711 Personal history of pulmonary embolism; Z91.048 Other nonmedicinal substance allergy status; Z91.018 Allergy to other foods; Z96.653 Presence of artificial knee joint, bilateral; Z91.011 Allergy to milk products; Z79.890 Hormone replacement therapy; Y92.230 Patient room in hospital as the place of occurrence of the external cause; G47.33 Obstructive sleep apnea (adult) (pediatric); Z79.899 Other long term (current) drug therapy; Z88.2 Allergy status to sulfonamides; M16.12 Unilateral primary osteoarthritis, left hip; Z79.1 Long term (current) use of non-steroidal anti-inflammatories (NSAID); Z91.010 Allergy to peanuts; R42 Dizziness and giddiness; R32 Unspecified urinary incontinence; T40.2X5A Adverse effect of other opioids, initial encounter; Z68.38 Body mass index [BMI] 38.0-38.9, adult; E66.9 Obesity, unspecified; E03.9 Hypothyroidism, unspecified